=== PATIENT | female | born 1970 | race Caucasian/White ===

== ENCOUNTER 2018-08-12 11:52 | Emergency (ER) | payer BC ==
[2018-08-12 11:59] VITALS: BP 131/78
[2018-08-12] MEDS ORDERED: Aspirin 81 MG Tab.Chew PO ONE (12:06)
[2018-08-12] MEDS ORDERED: Sodium Chloride 0.9% 10 ML Syringe FLUSH PRN (12:07)
[2018-08-12] MEDS ORDERED: Alum Hydrox/Mag Hydrox/Simeth 30 ML, Lidocaine 2% 15 ML PO ONE ×2 (12:09)
--- NOTE | 2018-08-12 12:25 | EDM.PDOC ---
ED HPI GENERAL MEDICAL PROBLEM - General Chief Complaint: Respiratory Problem Stated Complaint: chest pain Time Seen by Provider: 08/12/18 12:05 Source of Information: Reports: Patient History Limitations: Reports: No Limitations - History of Present Illness INITIAL COMMENTS - FREE TEXT/NARRATIVE: Patient is a 47-year-old female with history of anxiety, depression, ADHD, iron deficiency anemia, who presents the ED complaining of a sensation she cannot take a deep breath and also heaviness to her center aspect of her chest. Patient states she was walking this morning around 10:00 when this started. States she saw a snake while walking causing her to become more anxious. Since then she's had this sensation she cannot take a deep breath. She describes the heaviness to her chest as no pain. She rates it a 1 out of 10. No radiation. No diaphoresis. No nausea or vomiting. She denies any cough, fever, hemoptysis, abdominal pain, PND, orthopnea, increased weight, peripheral edema, and/or any additional complaints. She has no history of diabetes, hypercholesteremia, coronary disease, hypertension, DVT/PE. She does carry a history of acid reflux and questions if the discomfort is not related to the acid reflux. She is supposed to be on a PPI to which she has not. There is no first-degree relatives with heart disease. Patient does not take any control. She does not smoke. No drug use. Alcohol use Seldom. Admits to drinking 2 glasses of wine last night. - Related Data Allergies Allergy/AdvReac Type Severity Reaction Status Date / Time codeine Allergy Hypotension Verified 08/12/18 11:59 yellow dye Allergy Itching Verified 08/12/18 11:59 Home Meds: Home Meds Calcium Carbonate [Calcium] 500 mg PO BID 11/11/13 [History] Cholecalciferol (Vitamin D3) [Vitamin D] 5,000 unit PO DAILY 11/11/13 [History] LORazepam [Ativan] 0.5 mg PO BID PRN 11/11/13 [History] PNV95/Ferrous Fumarate/FA [ Multivitamins] 1 each PO DAILY 11/11/13 [ History] Ibuprofen [Motrin] 2 tab PO Q6H PRN 11/12/13 [History] Calcium Carbonate/Vitamin D3 [Calcium Carbonate/Vitamin D 600 MG-200 Unit] 1 tab PO TIDM #120 tablet 11/13/13 [Rx] Citalopram Hydrobromide [Celexa] 10 mg PO DAILY 08/12/18 [History] Dextroamphetamine/Amphetamine [Adderall 10 mg Tablet] 10 mg PO ASDIRECTED PRN [History] lamoTRIgine [Lamictal] 200 mg PO BEDTIME 08/12/18 [History] Past Medical History HEENT History: Reports: Allergic Rhinitis, Other (See Below) Other HEENT History: eustachian tube dysfunction Gastrointestinal History: Reports: GERD Oncologic (Cancer) History: Reports: Thyroid - Past Surgical History HEENT Surgical History: Reports: Oral Surgery GI Surgical History: Reports: Appendectomy Female Surgical History: Reports: Section Endocrine Surgical History: Reports: Thyroidectomy Social & Family History - Tobacco Use Smoking Status *Q: Never Smoker Second Hand Smoke Exposure: No - Caffeine Use Caffeine Use: Reports: Coffee - Recreational Drug Use Recreational Drug Use: No ED ROS GENERAL - Review of Systems Review Of Systems: ROS reveals no pertinent complaints other than HPI. ED EXAM, GENERAL - Physical Exam Exam: See Below Exam Limited By: No Limitations General Appearance: Alert, WD/WN, No Apparent Distress Ears: Hearing Grossly Normal Nose: Normal Inspection Throat/Mouth: Normal Inspection, Normal Voice, No Airway Compromise Neck: Normal Inspection, Supple Respiratory/Chest: No Respiratory Distress, Lungs Clear, Normal Breath Sounds, No Accessory Muscle Use, Chest Non-Tender Cardiovascular: Normal Peripheral Pulses, Regular Rate, Rhythm, No Murmur Peripheral Pulses: 2+: Radial (L), Radial (R) GI/Abdominal: Normal Bowel Sounds, Soft, Non-Tender, No Organomegaly, No Distention Back Exam: Normal Inspection Extremities: Normal Inspection, Non-Tender, No Pedal Edema Neurological: Alert, Oriented, CN II-XII Intact, Normal Cognition, No Motor/ Sensory Deficits Psychiatric: Normal Affect, Normal Mood Skin Exam: Warm, Dry, Intact, Normal Color Course - Vital Signs Last Recorded V/S: Last Vital Signs Temp 98.9 F 08/12/18 11:57 Pulse 83 08/12/18 11:57 Resp 18 08/12/18 11:57 BP 131/78 08/12/18 11:57 Pulse Ox 100 08/12/18 11:57 - Orders/Labs/Meds Orders: Active Orders 24 hr Category Date Time Status EKG 12 Lead [EKG Documentation Completion] [RC] STAT Care 08/12/18 12:06 Active Peripheral IV Care [RC] . DIRECTED Care 08/12/18 12:07 Active Peripheral IV Insertion Adult [OM.PC] Routine Oth 08/12/18 12:07 Ordered Labs: Laboratory Tests 08/12/18 08/12/18 08/12/18 Range/Units 12:10 12:10 12:10 WBC 6.23 (3.98-10.04) K/mm3 RBC 4.92 (3.98-5.22) M/mm3 Hgb 14.7 (11.2-15.7) gm/L Hct 43.5 (34.1-44.9) % MCV 88.4 (79.4-94.8) fl MCH 29.9 (25.6-32.2) pg MCHC 33.8 (32.2-35.5) g/dl RDW Std Deviation 43.2 (36.4-46.3) fL Plt Count 247 (182-369) K/mm3 MPV 10.2 (9.4-12.3) fl Neutrophils % (Manual) 68 H (40-60) % Band Neutrophils % 0 (0-10) % Lymphocytes % (Manual) 24 (20-40) % Atypical Lymphs % 0 % Monocytes % (Manual) 5 (2-10) % Eosinophils % (Manual) 1 (0.7-5.8) % Basophils % (Manual) 2 H (0.1-1.2) Platelet Estimate Adequate RBC Morph Comment Normal PT 10.4 (9.5-12.1) SECONDS INR 0.95 APTT 30 (24-31) SECONDS Sodium 137 (136-145) mEq/L Potassium 3.8 (3.5-5.1) mEq/L Chloride 100 (98-107) mEq/L Carbon Dioxide 27 (21-32) mEq/L Anion Gap 13.8 (5-15) BUN 17 (7-18) mg/dL Creatinine 1.0 (0.55-1.02) mg/dL Est Cr Clr Drug Dosing 56.19 mL/min Estimated GFR (MDRD) 60 (>60) mL/min BUN/Creatinine Ratio 17.0 (14-18) Glucose 107 H (74-106) mg/dL Calcium 10.0 (8.5-10.1) mg/dL Total Bilirubin 0.8 (0.2-1.0) mg/dL AST 17 (15-37) U/L ALT 26 (14-59) U/L Alkaline Phosphatase 102 (46-116) U/L Troponin I < 0.017 (0.00-0.056) ng/mL C-Reactive Protein 0.5 (<1.0) mg/dL Total Protein 7.8 (6.4-8.2) g/dl Albumin 4.1 (3.4-5.0) g/dl Globulin 3.7 gm/dL Albumin/Globulin Ratio 1.1 (1-2) TSH 3rd Generation (0.358-3.74) uIU/mL 08/12/18 08/12/18 Range/Units 12:10 15:27 WBC (3.98-10.04) K/mm3 RBC (3.98-5.22) M/mm3 Hgb (11.2-15.7) gm/L Hct (34.1-44.9) % MCV (79.4-94.8) fl MCH (25.6-32.2) pg MCHC (32.2-35.5) g/dl RDW Std Deviation (36.4-46.3) fL Plt Count (182-369) K/mm3 MPV (9.4-12.3) fl Neutrophils % (Manual) (40-60) % Band Neutrophils % (0-10) % Lymphocytes % (Manual) (20-40) % Atypical Lymphs % % Monocytes % (Manual) (2-10) % Eosinophils % (Manual) (0.7-5.8) % Basophils % (Manual) (0.1-1.2) Platelet Estimate RBC Morph Comment PT (9.5-12.1) SECONDS INR APTT (24-31) SECONDS Sodium (136-145) mEq/L Potassium (3.5-5.1) mEq/L Chloride (98-107) mEq/L Carbon Dioxide (21-32) mEq/L Anion Gap (5-15) BUN (7-18) mg/dL Creatinine (0.55-1.02) mg/dL Est Cr Clr Drug Dosing mL/min Estimated GFR (MDRD) (>60) mL/min BUN/Creatinine Ratio (14-18) Glucose (74-106) mg/dL Calcium (8.5-10.1) mg/dL Total Bilirubin (0.2-1.0) mg/dL AST (15-37) U/L ALT (14-59) U/L Alkaline Phosphatase (46-116) U/L Troponin I < 0.017 (0.00-0.056) ng/mL C-Reactive Protein (<1.0) mg/dL Total Protein (6.4-8.2) g/dl Albumin (3.4-5.0) g/dl Globulin gm/dL Albumin/Globulin Ratio (1-2) TSH 3rd Generation 0.204 L (0.358-3.74) uIU/mL Meds: Medications Discontinued Medications Generic Name Dose Route Start Last Admin Trade Name Freq PRN Reason Stop Dose Admin Aspirin 324 mg 08/12/18 12:06 08/12/18 12:47 Aspirin PO 08/12/18 12:07 324 mg ONETIME ONE Administration Al Hydroxide/Mg Hydroxide 30 0 ml 08/12/18 12:09 08/12/18 12:48 ml/ Lidocaine HCl 15 ml PO 08/12/18 12:10 45 ml ONETIME ONE Administration Sodium Chloride 10 ml 08/12/18 12:07 08/12/18 12:52 Saline Flush FLUSH 10 ml ASDIRECTED PRN Administration Keep Vein Open - Re-Assessments/Exams Free Text/Narrative Re-Assessment/Exam: On examination patient's vital signs are stable. She is not hypoxic nor tachycardic. She has no findings concerning for PE. She complains of a sensation of summary sitting on her chest. Localized with no radiation. She denies any nausea vomiting, abdominal pain, dizziness, cough, hemoptysis, diaphoresis, nor any additional complaints. She was walking when this is occurred. She did see a snake and caused her to become anxious. She carries a history of anxiety and depression. IV established. Aspirin 324 mg by mouth and also GI cocktail ordered. Initial labs and studies include: CBC, tsh, chem 14, CRP, coags studies, troponin with timed second troponin, chest x-ray one view, and EKG. EKG reviewed with Dr. Davis with no acute findings. Chest x-ray impression: Nothing acute is appreciated and portable chest x-ray. Labs reviewed: CBC essentially normal. Chem. Panel essentially normal. Troponin less than 0.17. TSH 0.204 low. CRP normal. Timed troponin has been ordered. 1415 Reassessment, patient states symptoms have significantly improved with the GI cocktail. Suspect this is related to her acid reflux. With that being said second troponin will be obtained 3 hours from initial draw. Per nursing staff patient has requested to have the second troponin drawn early. 2nd troponin: negative. Patient is pain-free. She has no symptoms upon discharge. Return precautions were discussed with the patient. She had no further questions or concerns. Departure - Departure Time of Disposition: 16:03 Disposition: Home, Self-Care 01 Condition: Good Clinical Impression: GERD (gastroesophageal reflux disease) Qualifiers: Esophagitis presence: esophagitis presence not specified Qualified Code(s): K21.9 - Gastro-esophageal reflux disease without esophagitis - Discharge Information Instructions: Food Choices for Gastroesophageal Reflux Disease, Adult, Easy-to- Read, Heartburn, [id number], Gastroesophageal Reflux Disease, Adult, Easy-to- Read Referrals: PCP,None [Primary Care Provider] - Forms: ED Department Discharge Additional Instructions: Please followup with PCP in the next 3 to 5 days for reevaluation. Start taking the omeprazole 40mg every a.m. for the next 2 wks. refrain from spicy foods, caffeinated beverages, chocolates, and eating or drinking within 4 hours of going to bed. Refrain from using any NSAIDs. May utilize Zantac 150 mg at bedtime if not improving with the result. After 2 weeks decreased omeprazole to 20 mg every day. Please return back to the ED if you develop any new or worsening symptoms. - My Orders Last 24 Hours: My Active Orders 08/12/18 12:06 EKG 12 Lead [EKG Documentation Completion] [RC] STAT 08/12/18 12:07 Peripheral IV Care [RC] . DIRECTED Peripheral IV Insertion Adult [OM.PC] Routine - Assessment/Plan Last 24 Hours: My Active Orders 08/12/18 12:06 EKG 12 Lead [EKG Documentation Completion] [RC] STAT 08/12/18 12:07 Peripheral IV Care [RC] . DIRECTED Peripheral IV Insertion Adult [OM.PC] Routine
--- NOTE | 2018-08-12 13:13 | CR ---
Chest: Portable view of the chest was obtained. Comparison: No prior chest imaging is available. Heart size and mediastinum are normal. Lungs are clear although small portion of the lung apices are obscured. Bony structures are grossly intact. Impression: 1. Nothing acute is appreciated on portable chest x-ray. Diagnostic code #1
== END 2018-08-12 16:26 | disposition home or self-care (01) ==
LOC: JD.ED 11:52
DX: K21.9 Gastro-esophageal reflux disease without esophagitis (principal); Z79.899 Other long term (current) drug therapy; Z88.5 Allergy status to narcotic agent; Z91.09 Other allergy status, other than to drugs and biological substances
CPT/HCPCS: 36415; 71045; 80053; 84443; 84484; 85007; 85027; 85610; 85730; 86140; 93005; 99285; A9270

== ENCOUNTER 2020-01-16 08:55 | Emergency (ER) | payer BC ==
[2020-01-16 09:05] VITALS: BP 127/81; PULSE 73
--- NOTE | 2020-01-16 09:19 | EDM.PDOC ---
ED HPI GENERAL MEDICAL PROBLEM - General Chief Complaint: Chest Pain Stated Complaint: [facility] Time Seen by Provider: 01/16/20 09:07 - History of Present Illness INITIAL COMMENTS - FREE TEXT/NARRATIVE: 49-year-old female presents the emergency room with chest pain. Patient was brought in by EMS. However the patient developed some chest pain actually yesterday afternoon this is underneath the left breast and she can press on a certain rib in the inferior aspect of the left breast that makes the pain worse. Patient has not had any leg swelling she is screened twice weekly for COVID and they have all been negative. She is not had any leg or calf pain. No significant shortness of breath. Today she had an episode where the pain got worse she felt her heart fluttering and she thought she might pass out. Lois contreras history is negative for coronary artery disease. However, she had a grandfather that in his 70s he was found in his chair. No smoking history. The patient did chew 3 baby aspirin at home prior to coming in. Back Pain Score (Numeric/FACES): 1 - Related Data Allergies Allergy/AdvReac Type Severity Reaction Status Date / Time codeine Allergy Hypotension Verified 01/16/20 09:06 yellow dye Allergy Itching Verified 01/16/20 09:06 Home Meds: Home Meds Calcium Carbonate [Calcium] 500 mg PO BID 11/11/13 [History] Cholecalciferol (Vitamin D3) [Vitamin D] 5,000 unit PO DAILY 11/11/13 [History] LORazepam [Ativan] 0.5 mg PO BID PRN 11/11/13 [History] PNV95/Ferrous Fumarate/FA [ Multivitamins] 1 each PO DAILY 11/11/13 [History] Ibuprofen [Motrin] 2 tab PO Q6H PRN 11/12/13 [History] Calcium Carbonate/Vitamin D3 [Calcium Carbonate/Vitamin D 600 MG-200 Unit] 1 tab PO TIDM #120 tablet 11/13/13 [Rx] Citalopram Hydrobromide [Celexa] 10 mg PO DAILY 08/12/18 [History] Dextroamphetamine/Amphetamine [Adderall 10 mg Tablet] 10 mg PO ASDIRECTED PRN 08/12/18 [History] lamoTRIgine [Lamictal] 200 mg PO BEDTIME 08/12/18 [History] Past Medical History HEENT History: Reports: Allergic Rhinitis, Other (See Below) Other HEENT History: eustachian tube dysfunction Gastrointestinal History: Reports: GERD Oncologic (Cancer) History: Reports: Thyroid - Past Surgical History HEENT Surgical History: Reports: Oral Surgery GI Surgical History: Reports: Appendectomy Female Surgical History: Reports: Section Endocrine Surgical History: Reports: Thyroidectomy Social & Family History - Caffeine Use Caffeine Use: Reports: Coffee ED ROS GENERAL - Review of Systems Review Of Systems: See Below Constitutional: Reports: No Symptoms HEENT: Reports: No Symptoms Respiratory: Reports: No Symptoms, Pleuritic Chest Pain. Denies: Shortness of Breath, Cough, Sputum Cardiovascular: Reports: Chest Pain, Palpitations Endocrine: Reports: No Symptoms GI/Abdominal: Reports: No Symptoms : Reports: No Symptoms Musculoskeletal: Reports: No Symptoms Skin: Reports: No Symptoms Neurological: Reports: No Symptoms ED EXAM, GENERAL - Physical Exam Exam: See Below Exam Limited By: No Limitations General Appearance: Alert, No Apparent Distress Head: Atraumatic, Normocephalic Neck: Normal Inspection, Supple, Non-Tender, Full Range of Motion Respiratory/Chest: No Respiratory Distress, Lungs Clear, Normal Breath Sounds, Other (Of the chest reveals some tenderness at the inferior aspect of the left breast right over a rib and this seems to be the tenderness that is bothering her.) Cardiovascular: Regular Rate, Rhythm, No Edema, No Murmur GI/Abdominal: Normal Bowel Sounds, Soft, Non-Tender EKG INTERPRETATION EKG Date: 01/16/20 Rhythm: NSR [place]: Normal P-Wave: Present QRS: Normal ST-T: Normal QT: Normal Comparison: No Change (No significant change from July last ) Course - Vital Signs Last Recorded V/S: Last Vital Signs Temp 36.6 C 01/16/20 09:02 Pulse 73 01/16/20 09:02 Resp 14 01/16/20 09:02 BP 127/81 01/16/20 09:02 Pulse Ox 100 01/16/20 09:02 - Orders/Labs/Meds Labs: Laboratory Tests 01/16/20 01/16/20 01/16/20 Range/Units 10:14 10:14 10:14 WBC 6.80 (3.98-10.04) K/mm3 RBC 4.85 (3.98-5.22) M/mm3 Hgb 14.6 (11.2-15.7) gm/dl Hct 43.1 (34.1-44.9) % MCV 88.9 D (79.4-94.8) fl MCH 30.1 (25.6-32.2) pg MCHC 33.9 (32.2-35.5) g/dl RDW Std Deviation 42.1 (36.4-46.3) fL Plt Count 250 (182-369) K/mm3 MPV 9.7 (9.4-12.3) fl Neut % (Auto) 73.7 H (34.0-71.1) % Lymph % (Auto) 16.2 L (19.3-51.7) % [place] % (Auto) 8.4 (4.7-12.5) % Eos % (Auto) 1.0 (0.7-5.8) Baso % (Auto) 0.6 (0.1-1.2) % Neut # (Auto) 5.01 (1.56-6.13) K/mm3 Lymph # (Auto) 1.10 L (1.18-3.74) K/mm3 [place] # (Auto) 0.57 H (0.24-0.36) K/mm3 Eos # (Auto) 0.07 (0.04-0.36) K/mm3 Baso # (Auto) 0.04 (0.01-0.08) K/mm3 D-Dimer, Quantitative 0.35 (0.19-0.50) mg/L Sodium 140 (136-145) mEq/L Potassium 3.5 (3.5-5.1) mEq/L Chloride 104 (98-107) mEq/L Carbon Dioxide 30 (21-32) mEq/L Anion Gap 9.5 (5-15) BUN 17 (7-18) mg/dL Creatinine 0.9 (0.55-1.02) mg/dL Est Cr Clr Drug Dosing 61.12 mL/min Estimated GFR (MDRD) > 60 (>60) mL/min BUN/Creatinine Ratio 18.9 H (14-18) Glucose 94 (74-106) mg/dL Calcium 8.7 D (8.5-10.1) mg/dL Magnesium (1.8-2.4) mg/dl Total Bilirubin 0.5 (0.2-1.0) mg/dL AST 11 L (15-37) U/L ALT 23 (14-59) U/L Alkaline Phosphatase 88 (46-116) U/L Troponin I < 0.017 (0.00-0.056) ng/mL Total Protein 7.3 (6.4-8.2) g/dl Albumin 3.8 (3.4-5.0) g/dl Globulin 3.5 gm/dL Albumin/Globulin Ratio 1.1 (1-2) 01/16/20 Range/Units 10:14 WBC (3.98-10.04) K/mm3 RBC (3.98-5.22) M/mm3 Hgb (11.2-15.7) gm/dl Hct (34.1-44.9) % MCV (79.4-94.8) fl MCH (25.6-32.2) pg MCHC (32.2-35.5) g/dl RDW Std Deviation (36.4-46.3) fL Plt Count (182-369) K/mm3 MPV (9.4-12.3) fl Neut % (Auto) (34.0-71.1) % Lymph % (Auto) (19.3-51.7) % [place] % (Auto) (4.7-12.5) % Eos % (Auto) (0.7-5.8) Baso % (Auto) (0.1-1.2) % Neut # (Auto) (1.56-6.13) K/mm3 Lymph # (Auto) (1.18-3.74) K/mm3 [place] # (Auto) (0.24-0.36) K/mm3 Eos # (Auto) (0.04-0.36) K/mm3 Baso # (Auto) (0.01-0.08) K/mm3 D-Dimer, Quantitative (0.19-0.50) mg/L Sodium (136-145) mEq/L Potassium (3.5-5.1) mEq/L Chloride (98-107) mEq/L Carbon Dioxide (21-32) mEq/L Anion Gap (5-15) BUN (7-18) mg/dL Creatinine (0.55-1.02) mg/dL Est Cr Clr Drug Dosing mL/min Estimated GFR (MDRD) (>60) mL/min BUN/Creatinine Ratio (14-18) Glucose (74-106) mg/dL Calcium (8.5-10.1) mg/dL Magnesium 2.1 (1.8-2.4) mg/dl Total Bilirubin (0.2-1.0) mg/dL AST (15-37) U/L ALT (14-59) U/L Alkaline Phosphatase (46-116) U/L Troponin I (0.00-0.056) ng/mL Total Protein (6.4-8.2) g/dl Albumin (3.4-5.0) g/dl Globulin gm/dL Albumin/Globulin Ratio (1-2) Meds: Medications Discontinued Medications Generic Name Dose Route Start Last Admin Trade Name Freq PRN Reason Stop Dose Admin Aspirin 81 mg 01/16/20 09:22 01/16/20 09:27 Aspirin PO 01/16/20 09:23 81 mg ONETIME ONE Administration - Re-Assessments/Exams Free Text/Narrative Re-Assessment/Exam: 01/16/20 11:02 EKG is nondiagnostic mostly normal. Chest x-ray shows no acute cardiopulmonary changes troponin is negative d-dimer is negative. D-dimer is negative. Did discuss checking a Holter however the patient's can be out of town this weekend and this would be the best time to do it however she will discuss this with her regular physician and follow-up with him next week. Departure - Departure Time of Disposition: 11:06 Disposition: Home, Self-Care 01 Clinical Impression: Chest pain, Palpitations Clinical Impression: (Ruled Out): Pain Forms: ED Department Discharge Additional Instructions: Return to the emergency room with any questions problems or worsening symptoms. Follow-up with your regular physician next week discuss getting a heart monitor. Start baby aspirin 1 daily. Sepsis Event Note (ED) - Evaluation Sepsis Screening Result: No Definite Risk - Focused Exam Vital Signs: Vital Signs Temp Pulse Resp BP Pulse Ox 01/16/20 09:02 36.6 C 73 14 127/81 100
[2020-01-16] MEDS ORDERED: Aspirin 81 MG Tab.Chew PO ONE (09:22)
--- NOTE | 2020-01-16 10:08 | CR ---
Chest: Portable view of the chest was obtained. Comparison: Prior chest x-ray of 08/12/18. Heart size and mediastinum are normal. Lungs are clear with no acute parenchymal change. Slight scoliosis is noted within the spine. Bony structures show nothing acute. Impression: 1. Nothing acute is identified on portable chest x-ray. Diagnostic code #2 This report was dictated in MDT
== END 2020-01-16 11:21 | disposition home or self-care (01) ==
LOC: JD.ED 08:55
DX: R07.9 Chest pain, unspecified (principal); R00.2 Palpitations; Z88.5 Allergy status to narcotic agent; Z91.041 Radiographic dye allergy status; Z79.899 Other long term (current) drug therapy
CPT/HCPCS: 36415; 71045; 80053; 83735; 84484; 85025; 85379; 99285; A9270; 93010; 99283

== ENCOUNTER 2020-06-04 17:58 | Emergency (ER) | payer BC ==
[2020-06-04] MEDS ORDERED: Sodium Chloride 0.9% 10 ML Syringe FLUSH PRN (18:58)
--- NOTE | 2020-06-04 19:26 | EDM.PDOCBH ---
ED HPI GENERAL MEDICAL PROBLEM - General Chief Complaint: Behavioral/Psych Stated Complaint: RHB SOB Time Seen by Provider: 06/04/20 18:03 Source of Information: Reports: Patient History Limitations: Reports: No Limitations - History of Present Illness INITIAL COMMENTS - FREE TEXT/NARRATIVE: 49-year-old female presents to the emergency department with complaints of "impending doom ". She states that she has had intermittent issues with this since about 17 May. She states that on April 23 her psychiatrist increased her Celexa dose from 10 to 20 mg and started her on Abilify. She states that this actually made her feel worse, she could not concentrate and felt like she was having worsening panic attacks. She spoke with her provider at that time who discontinued the Abilify and then started her on Adderall. She states she took this for about 3 days and then discontinued that as well as it made her heart race, was unable to concentrate, and had worsening anxiety. She then spoke with her physician who discontinued the Adderall and then started her on BuSpar and Lamictal. These were started on 01 June. She states she was also given prescriptions for clonazepam as needed and hydroxyzine. She states that this all started on 23 April after she had her first Covid vaccination. Her regular physician, Dr. Victoria, did not feel this was an anaphylactic reaction but more of a panic attack. He then recommended that she go ahead and get her second Covid vaccination. She got that on 17 May and states she did well with that. She states that last night when she laid down in bed she had a horrible fear of impending doom, her heart began racing, she became cold and clammy, short of breath, developed left jaw pain, and became numb in all her li mbs. She took a clonazepam and it eventually worked and she was able to rest. Is also seen recently by Dr. Gurrola in the clinic and he ordered for her to have echocardiogram and treadmill stress test due to the chest palpitations and shortness of breath. Dates she had her stress test yesterday and has not had the results yet however she was able to complete it without episode. Of note, patient has a history of thyroid cancer with radical dissection and removal of lymph nodes and parathyroid and thymus in 2019. She states she sees an senior counsel for dosing of her Synthroid and that her most recent TSH level was 0.5. This is within normal limits. She states she takes 100 mcg of Synthroid. Patient states that she also feels like when she is driving she was going to pass out. - Related Data Allergies Allergy/AdvReac Type Severity Reaction Status Date / Time codeine Allergy Severe Hypotension Verified 06/04/20 18:14 yellow dye Allergy Severe Itching Verified 06/04/20 18:14 doxepin AdvReac Severe Change Verified 06/04/20 18:14 Mental Status Home Meds: Home Meds Cholecalciferol (Vitamin D3) [Vitamin D] 5,000 unit PO DAILY 11/11/13 [History] Citalopram [Citalopram HBr] 20 mg PO DAILY 06/04/20 [History] ClonazePAM [KlonoPIN] 0.5 mg PO DAILY PRN 06/04/20 [History] LORazepam [Ativan] 1 mg PO BID PRN #10 tablet 06/04/20 [Rx] busPIRone [Buspar] 10 mg PO DAILY 06/04/20 [History] hydrOXYzine HCL [hydrOXYzine] 10 mg PO DAILY PRN 06/04/20 [History] lamoTRIgine [Lamotrigine] 25 mg PO BEDTIME 06/04/20 [History] Past Medical History HEENT History: Reports: Allergic Rhinitis, Other (See Below) Other HEENT History: eustachian tube dysfunction Gastrointestinal History: Reports: [employer] History: Reports: Psychiatric History: Reports: Anxiety, Depression, Panic Attack Oncologic (Cancer) History: Reports: Thyroid - Infectious Disease History Infectious Disease History: Reports: Chicken Pox - Past Surgical History HEENT Surgical History: Reports: Oral Surgery GI Surgical History: Reports: Appendectomy Female Surgical History: Reports: Section Endocrine Surgical History: Reports: Thyroidectomy Social & Family History - Family History Family Medical History: No Pertinent Family History - Tobacco Use Tobacco Use Status *Q: Never Tobacco User Second Hand Smoke Exposure: No - Caffeine Use Caffeine Use: Reports: Coffee - Recreational Drug Use Recreational Drug Use: No ED ROS GENERAL - Review of Systems Review Of Systems: See Below Constitutional: Reports: Chills, Diaphoresis. Denies: Fever HEENT: Reports: No Symptoms Respiratory: Reports: Shortness of Breath. Denies: Wheezing, Pleuritic Chest Pain, Cough, Sputum Cardiovascular: Reports: Palpitations. Denies: Chest Pain, Edema Endocrine: Reports: No Symptoms GI/Abdominal: Reports: Diarrhea (With episodes of anxiety), Nausea (With episodes of anxiety). Denies: Vomiting : Reports: No Symptoms Musculoskeletal: Reports: No Symptoms Skin: Reports: No Symptoms Neurological: Reports: No Symptoms Psychiatric: Reports: Anxiety Hematologic/Lymphatic: Reports: No Symptoms Immunologic: Reports: No Symptoms ED EXAM, BEHAVIORAL HEALTH - Physical Exam Exam: See Below Exam Limited By: No Limitations General Appearance: Alert, WD/WN, Anxious, Mild Distress Eye Exam: Bilateral Eye: PERRL Ears: Hearing Grossly Normal Nose: Normal Inspection, Normal Mucosa Throat/Mouth: Normal Inspection, Normal Voice, No Airway Compromise Head: Atraumatic, Normocephalic Neck: Normal Inspection, Supple, Full Range of Motion Respiratory/Chest: No Respiratory Distress, Lungs Clear, Normal Breath Sounds, No Accessory Muscle Use, Chest Non-Tender Cardiovascular: Normal Peripheral Pulses, Regular Rate, Rhythm, No Edema, No Murmur GI/Abdominal: Normal Bowel Sounds, Soft, Non-Tender, No Distention (Female) Exam: Deferred Rectal (Female) Exam: Deferred Back Exam: Normal Inspection, Full Range of Motion Extremities: Normal Inspection, Normal Range of Motion, Non-Tender, No Pedal Edema, Normal Capillary Refill Neurological: Alert, Normal Cognition, Normal Gait, Oriented x 3, Other (anxious) Psychiatric: Alert, Normal Cognition, Oriented, Tearful, Other (anxious; feelings of impending doom) Skin Exam: Warm, Dry, Intact, Normal color, No rash #1 Interpretation EKG Date: 06/04/20 Time: 18:10 Rhythm: NSR Rate (Beats/Min): 74 [place]: Normal P-Wave: Present QRS: Normal ST-T: Normal QT: Normal Comparison: NA - No Prior EKG (Per Dr. Araiza interpretation: Sinus rhythm at 74, probable left atrial enlargement) COURSE, BEHAVIORAL HEALTH COMP - Course Vital Signs: Last Vital Signs Temp 98.8 F 06/04/20 18:06 Pulse 81 06/04/20 18:06 Resp 20 06/04/20 18:06 BP 154/86 H 06/04/20 18:06 Pulse Ox 100 06/04/20 18:06 Orders, Labs, Meds: Active Orders 24 hr Category Date Time Status Sodium Chloride 0.9% [Saline Flush] Med 06/04/20 18:58 Active 10 ml FLUSH ASDIRECTED PRN Saline Lock Insert [OM.PC] Stat Oth 06/04/20 18:58 Ordered Medication Orders Sodium Chloride (Saline Flush) 10 ml FLUSH ASDIRECTED PRN PRN Reason: Keep Vein Open Last Admin: 06/04/20 19:41 Dose: 10 ml Documented by: JALYN Laboratory Tests 06/04/20 06/04/20 06/04/20 Range/Units 18:20 18:20 19:00 WBC 5.99 (3.98-10.04) K/mm3 RBC 4.53 (3.98-5.22) M/mm3 Hgb 13.4 (11.2-15.7) gm/dl Hct 40.2 (34.1-44.9) % MCV 88.7 (79.4-94.8) fl MCH 29.6 (25.6-32.2) pg MCHC 33.3 (32.2-35.5) g/dl RDW Std Deviation 41.9 (36.4-46.3) fL Plt Count 240 (182-369) K/mm3 MPV 10.4 (9.4-12.3) fl Neut % (Auto) 66.3 (34.0-71.1) % Lymph % (Auto) 22.4 (19.3-51.7) % [place] % (Auto) 9.8 (4.7-12.5) % Eos % (Auto) 0.8 (0.7-5.8) Baso % (Auto) 0.5 (0.1-1.2) % Neut # (Auto) 3.97 (1.56-6.13) K/mm3 Lymph # (Auto) 1.34 (1.18-3.74) K/mm3 [place] # (Auto) 0.59 H (0.24-0.36) K/mm3 Eos # (Auto) 0.05 (0.04-0.36) K/mm3 Baso # (Auto) 0.03 (0.01-0.08) K/mm3 Sodium 142 (136-145) mEq/L Potassium 3.7 (3.5-5.1) mEq/L Chloride 105 (98-107) mEq/L Carbon Dioxide 27 (21-32) mEq/L Anion Gap 13.7 (5-15) BUN 12 (7-18) mg/dL Creatinine 0.7 (0.55-1.02) mg/dL Est Cr Clr Drug Dosing 71.36 mL/min Estimated GFR (MDRD) > 60 (>60) mL/min BUN/Creatinine Ratio 17.1 (14-18) Glucose 95 (74-106) mg/dL Calcium 8.4 L (8.5-10.1) mg/dL Magnesium 2.1 (1.8-2.4) mg/dl Total Bilirubin 0.5 (0.2-1.0) mg/dL AST 15 (15-37) U/L ALT 26 (14-59) U/L Alkaline Phosphatase 92 (46-116) U/L Troponin I < 0.017 (0.00-0.056) ng/mL Total Protein 7.0 (6.4-8.2) g/dl Albumin 3.7 (3.4-5.0) g/dl Globulin 3.3 gm/dL Albumin/Globulin Ratio 1.1 (1-2) TSH 3rd Generation 0.133 L (0.358-3.74) uIU/mL SARS-CoV-2 RNA (ALEJANDRA) Negative (NEGATIVE) Medications Generic Name Dose Route Start Last Admin Trade Name Freq PRN Reason Stop Dose Admin Sodium Chloride 10 ml 06/04/20 18:58 06/04/20 19:41 Saline Flush FLUSH 10 ml ASDIRECTED PRN Administration Keep Vein Open Re-Assessment/Re-Exam: CBC is unremarkable, CMP is unremarkable other than a calcium of 8.4 this is likely due to having her parathyroid gland removed however this appears to be at her baseline, troponin less than 0.017, TSH 0.133. Patient states that she will call her senior counsel and report the lab value however this is within normal range. Of note, patient also did request to not have a chest x-ray as she has been exposed to so much radiation in the past. She denies any fever or chills or recent cough. Patient's Covid test is negative. Discharge vs Psych Eval/Treatment:: 06/04/20 20:17 Patient will be discharged to home with recommendations she discontinue her BuSp ar and clonazepam. Patient states that when she takes clonazepam she feels like she is so drowsy as a result of it however is still having episodes of severe anxiety. Recommend that she take Ativan starting with one half of a milligram twice daily as needed for anxiety, may increase to 1 mg twice daily. She also needs to follow-up with her psychologist first thing Sunday. Departure - Departure Time of Disposition: 20:24 Disposition: Home, Self-Care 01 Condition: Fair Clinical Impression: Anxiety - Discharge Information Prescriptions: LORazepam [Ativan] 1 mg PO BID PRN #10 tablet PRN Reason: Anxiety Instructions: Managing Anxiety, Adult Referrals: Jordan Gerardo MD [Primary Care Provider] - Forms: ED Department Discharge Additional Instructions: You were seen in the emergency department today with complaints of rapid heartbeat and shortness of breath and feelings of "impending doom ". Cardiac work-up was completed. Your EKG was unremarkable. Cardiac labs were also unremarkable. Your TSH level was 0.133 and this is within normal limits however I recommend you call your senior counsel first thing Sunday to see if she wants to change her dose of thyroid medication. Recommend to discontinue taking the BuSpar and the clonazepam. You may start taking Ativan 1/2 mg twice daily as needed for anxiety. May increase to 1 mg twice daily as needed for anxiety. This medication will work more quickly when you are feeling as though you are having an anxiety attack however the grogginess will also wear off more quickly. Recommend that you follow-up first thing Sunday with your psychologist in regards to your medication changes and further treatment. Sepsis Event Note (ED) - Evaluation Sepsis Screening Result: No Definite Risk - Focused Exam Vital Signs: Vital Signs Temp Pulse Resp BP Pulse Ox 06/04/20 18:06 98.8 F 81 20 154/86 H 100 - My Orders Last 24 Hours: My Active Orders 06/04/20 18:58 Sodium Chloride 0.9% [Saline Flush] 10 ml FLUSH ASDIRECTED PRN Saline Lock Insert [OM.PC] Stat - Assessment/Plan Last 24 Hours: My Active Orders 06/04/20 18:58 Sodium Chloride 0.9% [Saline Flush] 10 ml FLUSH ASDIRECTED PRN Saline Lock Insert [OM.PC] Stat
[2020-06-04 21:04] VITALS: BP 110/66; PULSE 74
== END 2020-06-04 20:45 | disposition home or self-care (01) ==
LOC: JD.ED 17:58
DX: F41.9 Anxiety disorder, unspecified (principal); Z88.5 Allergy status to narcotic agent; Z88.8 Allergy status to other drugs, medicaments and biological substances; Z91.048 Other nonmedicinal substance allergy status; Z20.822 Contact with and (suspected) exposure to COVID-19
CPT/HCPCS: 36415; 80053; 83735; 84443; 84484; 85025; 93010; 99284; 99285-25; U0002

== ENCOUNTER 2021-06-29 10:58 | Emergency (ER) | payer BC ==
[2021-06-29 11:19] VITALS: BP 136/92; PULSE 90
[2021-06-29] MEDS ORDERED: Sodium Chloride 0.9% 10 ML Syringe FLUSH PRN (11:44)
[2021-06-29] MEDS ORDERED: Alum Hydrox/Mag Hydrox/Simeth 30 ML, Lidocaine 2% 15 ML PO ONE ×2 (11:44)
== END 2021-06-29 13:20 | disposition home or self-care (01) ==
LOC: JD.ED 10:58
DX: K20.90 Esophagitis, unspecified without bleeding (principal); Z88.5 Allergy status to narcotic agent; Z79.899 Other long term (current) drug therapy; Z86.16 Personal history of COVID-19
CPT/HCPCS: 36415; 80053; 83690; 83735; 84484; 85025; 86140; 93005; 99285; A9270; 93010